=== PATIENT | female | born 1960 | race Caucasian/White ===

== ENCOUNTER → 2020-01-20 | Outpatient (CLI) | payer OTHER ==
[~2020-01-20] MED LIST: ALKA SELTZER PO; APPEAREX2500 MCG PO; B-100 COMPLEX1 EAC1 PO; CALCIUM 600 +1 EAC1 PO; FISHOIL PO; LORTAB PO; MOBIC7.5 MG PO; NOHOMEMEDICATIONS; VITAMIN D1000 UNI1 PO
[2020-01-20 16:05] LABS: BASOPHILS 0.6 % (0.0-2.0); MCHC 33.1 g/dL (28.0-37.0); WBC 6.3 thou/uL (4.0-11.0)
[2020-01-20 16:06] LABS: ABSOLUTE NEUTROPHILS 3.9 thou/uL (1.4-8.2); HEMATOCRIT 38.7 % (37.0-47.0); HEMOGLOBIN 12.8 gm/dL (12.0-15.0); LYMPHOCYTES 28.5 % (24.0-44.0); MCH 30.1 pg (26.0-34.0); MCV 90.9 fL (80.0-100.0); MONOCYTES 7.2 % (1.0-8.0); PLATELET COUNT 273 thou/uL (150-400); POLYS 61.7 % (36.0-66.0); RBC 4.25 mil/uL (4.20-5.00); RDW 13.4 % (10.5-14.5)
[2020-01-20 16:21] LABS: ALBUMIN 4.1 g/dL (3.4-5.0); ANION GAP 8 mmol/L (7-16); BUN 13 mg/dL (7-18); CALCIUM 9.7 mg/dL (8.5-10.1); CHLORIDE 104 mmol/L (98-107); CHOLESTEROL 201 mg/dL (<200); CO2 33 mmol/L (21-32); CREATININE 0.6 mg/dL (0.6-1.0); GLUCOSE 98 mg/dL (74-106); HDL CHOLESTEROL 73 mg/dL (>40); LDL CHOLESTEROL 110 mg/dL (<100); POTASSIUM 4.2 mmol/L (3.5-5.1); SGOT 22 U/L (15-37); SGPT 30 U/L (30-65); SODIUM 145 mmol/L (136-145); TC:HDL 2.8 Ratio (Not establshd); TOTAL BILIRUBIN 0.3 mg/dL (0.2-1.0); TOTAL PROTEIN 7.7 g/dL (6.4-8.2); TRIGLYCERIDE 92 mg/dL (<150); VLDL 18 mg/dL (<40)
== END ==
LOC: LAB 15:39
PROVIDERS: ATTEND Family Medicine
DX: Z00.00 Encounter for general adult medical examination without abnormal findings (principal)

== ENCOUNTER → 2020-12-08 | Outpatient (CLI) | payer OTHER ==
[~2020-12-08] VITALS: Ht 154.9 cm; Wt 53.5 kg
[~2020-12-08] MED LIST changes: +PROBIOTIC1 EAC7 PO; +VITAMIN B COMP1 EACH PO; +VITAMIN D350 MC3 PO
--- NOTE | 2020-12-11 17:36 | P ---
[facility] [place] [address] PROCEDURE REPORT Name: GORDY GUSMAN Room #: REG ARTHUR Wilson.#: [id number] Admission: 12/08/20 Attend Phys: Ramirez Gill Discharge: Date of : 60 Report #: [id number] THIS REPORT FOR: cc: Francesca Cifuentes Linda J. DO McElhinney, Christian C. MD ~ cc: Francesca Cifuentes DO DATE OF SERVICE: 12/08/2020 PROCEDURE PERFORMED: Colonoscopy. HISTORY OF PRESENT ILLNESS: The patient is a 60-year-old female who presents today for routine screening colonoscopy. Last colonoscopy was 10 years ago. She does have a family history of colon cancer in a grandmother. Denies any symptoms. DESCRIPTION OF PROCEDURE: The risks and benefits of the procedure were explained to the patient. Those risks including but not limited to bleeding, perforation and the risk of sedation. She understood these risks and gave informed consent. Sedation was given using propofol per anesthesia. Next, a digital rectal exam was initially performed, which was normal. Next, using a standard Olympus colonoscope, the scope was placed in the patient's anus and advanced under direct vision to the cecum. The overall prep was excellent. The cecum and ileocecal valve were normal in appearance. Ascending, transverse, descending and sigmoid colon were all normal. The rectal mucosa was normal. On retroflexion, no abnormalities were noted. The scope was then withdrawn and the procedure terminated. The patient tolerated the procedure well. IMPRESSION: Normal colonoscopy. RECOMMENDATIONS: Repeat colonoscopy in 5 years due to family history. Thank you for allowing me to participate in her care. <ELECTRONICALLY SIGNED> By: Ramirez Hill MD 12/11/20 [id number] Ramirez Hill MD /nt
== END | disposition home or self-care (01) ==
LOC: GI 09:00
PROVIDERS: ATTEND Specialist
DX: Z12.11 Encounter for screening for malignant neoplasm of colon (principal); Z80.0 Family history of malignant neoplasm of digestive organs; Z98.890 Other specified postprocedural states; Z90.49 Acquired absence of other specified parts of digestive tract; Z87.19 Personal history of other diseases of the digestive system; Z88.8 Allergy status to other drugs, medicaments and biological substances
CPT/HCPCS: 62110; 62900

== ENCOUNTER → 2021-01-02 | Outpatient (CLI) | payer OTHER | LOC: BC 15:53 | PROVIDERS: ATTEND Family Medicine | DX: Z12.31 Encounter for screening mammogram for malignant neoplasm of breast (principal) ==